=== PATIENT | female | born 1955 | race Hispanic/Latino ===

== ENCOUNTER 2020-11-20 10:15 | Outpatient (CLI) | payer MEDICARE, OTHER ==
--- NOTE | 2020-11-20 10:41 | RAD ---
Exam: 4 views of lumbar spine HISTORY: Lumbar radiculopathy. FINDINGS: Weightbearing AP, lateral neutral, lateral extension and lateral flexion views were perform ed. Four lumbar type vertebra. Lumbar spine vertebral body heights are maintained. No fracture. Mild loss of disc space height at L5-S1. Spondylolisthesis: L5-S1: 7.8 mm in the neutral position, 10 mm upon flexion, 5.4 mm upon extension. There appear to be associated bilateral pars defects. Atherosclerosis of a nonaneurysmal aorta is noted Visualized bony pelvis and sacrum are intact IMPRESSION: 1. Grade 1 anterolisthesis of L5 upon S1 with associated spondylolysis.
== END 2020-11-20 10:16 | disposition home or self-care (01) ==
LOC: BICRAD 10:15
PROVIDERS: ATTEND Neurological Surgery
DX: M54.16 Radiculopathy, lumbar region (principal); M43.06 Spondylolysis, lumbar region; M43.16 Spondylolisthesis, lumbar region
CPT/HCPCS: 72110

== ENCOUNTER 2021-03-17 08:59 | Outpatient (CLI) | payer MEDICARE, MEDICAID | END 2021-03-17 09:00 | disposition home or self-care (01) | LOC: BICCT 08:59 | PROVIDERS: ATTEND Internal Medicine | DX: Z12.2 Encounter for screening for malignant neoplasm of respiratory organs (principal); F17.210 Nicotine dependence, cigarettes, uncomplicated; R91.8 Other nonspecific abnormal finding of lung field | CPT/HCPCS: 71271 ==

== ENCOUNTER → 2021-07-15 | Outpatient (CLI) | payer MEDICARE, OTHER | LOC: SCSMRI 08:15 | PROVIDERS: ATTEND Neurological Surgery | DX: M54.16 Radiculopathy, lumbar region (principal); M43.17 Spondylolisthesis, lumbosacral region; M48.061 Spinal stenosis, lumbar region without neurogenic claudication; M48.07 Spinal stenosis, lumbosacral region | CPT/HCPCS: 72148 ==

== ENCOUNTER 2021-08-28 08:09 | Outpatient (CLI) | payer MEDICARE, OTHER ==
[2021-08-28 09:03] LABS: Hemoglobin 14.1 g/dL (12.0-15.5); Mean Corpuscular HGB CONC 32.3 g/dL (32.0-36.0); Mean Corpuscular Hemoglobin 28.2 pg (27.0-33.0); Mean Corpuscular Volume 87.2 fl (81.6-98.3); Mean Platelet Volume 11.3 fl (7.4-10.4); Platelet Count 578 10x3/uL (150-450); RBC Distribution Width 15.1 % (11.5-14.5); White Blood Cell (WBC) Count 13.2 10x3/uL (3.5-10.5)
[2021-08-28 09:28] LABS: Prothrombin Time 10.6 sec (9.5-12.1)
[2021-08-28 16:59] LABS: SARS-CoV-2 PCR by NAA Not Detected (NotDetected)
== END 2021-08-28 08:10 | disposition home or self-care (01) ==
LOC: LABBT 08:09
PROVIDERS: ATTEND Neurological Surgery
DX: Z01.812 Encounter for preprocedural laboratory examination (principal); M43.16 Spondylolisthesis, lumbar region; Z20.822 Contact with and (suspected) exposure to COVID-19
CPT/HCPCS: 85027; 85610; 85730; U0003; U0005

== ENCOUNTER 2021-09-01 05:28 | Inpatient (IN) | payer MEDICARE, OTHER ==
[2021-09-01] MEDS ORDERED: ceFAZolin 2 GM/DEX 5% 100 ML BAG ONE ×2 (06:03→13:48)
[2021-09-01] MEDS ORDERED: Thrombin 5000 UNITS/5 ML VIAL ONE (06:11)
[2021-09-01] MEDS ORDERED: Bupivacaine PF 0.5% 30 ML VIAL ONE (06:11)
[2021-09-01] MEDS ORDERED: Neomycin-Polymyxin 1 ML AMP ONE (06:11)
[2021-09-01] MEDS ORDERED: EPINEPHrine 1 MG/10 ML Abboject SYRINGE ONE (06:11)
[2021-09-01] MEDS ORDERED: EPINEPHrine 1 MG/ML AMP ONE (06:12)
[2021-09-01] MEDS ORDERED: Fentanyl 250 MCG/5 ML VIAL ONE (06:25)
[2021-09-01] MEDS ORDERED: Midazolam HCl 2 mg/2 ml Vial ONE ×2 (06:25→06:53)
[2021-09-01] MEDS ORDERED: Phenylephrine 10 MG/ML VIAL ONE (06:25)
[2021-09-01 06:27] LABS: #Basophils 0.1 thou/uL (0.0-0.2); #Eosinphils 0.2 thou/uL (0.0-0.7); #Lymphocytes 4.7 thou/uL (1.20-3.40); #Monocytes 1.1 thou/uL (0.11-0.59); #Neutrophils 8.5 thou/uL (1.40-6.50); %Basophils 0.7 % (0.0-1.0); %Eosinophils 1.6 % (0.0-10.0); %Monocytes 7.6 % (0.0-10.0); %Neutrophils 58.2 % (42.0-75.0); Hemoglobin 14.8 g/dL (12.0-16.0); Mean Corpuscular HGB CONC 32.6 g/dL (32.0-36.0); Mean Corpuscular Hemoglobin 28.2 pg (27.0-31.0); Mean Corpuscular Volume 86.5 fL (78.0-98.0); Mean Platelet Volume 8.9 fL (7.4-10.4); Platelet Count 477 thou/uL (130-400); RBC Distribution Width 13.5 % (11.5-14.5); Red Blood Cell (RBC) Count 5.24 mill/uL (4.20-5.40); White Blood Cell (WBC) Count 14.5 thou/uL (4.8-10.8)
[2021-09-01] MEDS ORDERED: Promethazine 25 MG TAB PO PRN (06:35)
[2021-09-01] MEDS ORDERED: Ondansetron PF 4 MG/2 ML Vial IVP PRN (06:35)
[2021-09-01] MEDS ORDERED: tiZANidine HCl 4 MG TAB PO PRN (06:35)
[2021-09-01] MEDS ORDERED: Milk Of Magnesia 30 ML UDCUP PO PRN (06:35)
[2021-09-01] MEDS ORDERED: HYDROcodone/Acetaminophen 10/325 mg Tablet PO PRN (06:35)
[2021-09-01] MEDS ORDERED: diphenhydrAMINE 25 MG CAP PO PRN (06:35)
[2021-09-01] MEDS ORDERED: Bisacodyl 10 MG SUPP PR PRN (06:35)
[2021-09-01] MEDS ORDERED: Mag-Al 1200 mg/1200 mg/30 ML UDCUP PO PRN (06:35)
[2021-09-01] MEDS ORDERED: Promethazine HCl 12.5 MG SUPP PR PRN (06:35)
[2021-09-01] MEDS ORDERED: Albuterol Sulfate 2.5 mg/3 ml Neb NEB PRN (06:56)
[2021-09-01] MEDS ORDERED: Lidocaine 1% PF 5 ML VIAL ONE (07:03)
[2021-09-01] MEDS ORDERED: Metoclopramide HCl 10 MG/2 ML VIAL ONE (07:03)
[2021-09-01] MEDS ORDERED: PROPOFOL 200 MG/20 ML VIAL ONE (07:03)
[2021-09-01] MEDS ORDERED: Rocuronium Bromide 10 MG/ML (10ML VIAL) ONE (07:03)
[2021-09-01] MEDS ORDERED: ePHEDrine 50 MG/ML VIAL ONE (07:03)
[2021-09-01] MEDS ORDERED: PHENYLEPHRINE-NS 100 MCG/ML 10 ML SYRINGE ONE (07:03)
[2021-09-01] MEDS ORDERED: Ondansetron PF 4 MG/2 ML Vial ONE (07:03)
[2021-09-01] MEDS ORDERED: Promethazine HCl 25 MG/ML VIAL IM PRN (12:28)
[2021-09-01] MEDS ORDERED: Ondansetron HCl/PF 4 MG/2 ML Vial IVP PRN (12:28)
[2021-09-01] MEDS ORDERED: Promethazine HCl 25 MG/ML VIAL IVPB PRN (12:28)
[2021-09-01] MEDS ORDERED: HYDROmorphone 2 MG/ML VIAL SLOW IVP PRN (12:28)
[2021-09-01] MEDS ORDERED: Fentanyl 100 MCG/2 ML VIAL ONE (12:33)
[2021-09-01] MEDS ORDERED: Promethazine HCl 25 MG/ML VIAL ONE (12:45)
[2021-09-01] MEDS ORDERED: HYDROmorphone 2 MG/ML VIAL ONE (12:48)
[2021-09-01] MEDS: ceFAZolin Sodium/D5W 2 GM in Premix Bag 1 BAG IVPB SCH ×2 (14:50→22:53)
[2021-09-01] MEDS: metFORMIN 500 MG TAB PO SCH ×2 (18:53→19:13)
[2021-09-01] MEDS: Morphine 2 MG/ML VIAL SLOW IVP PRN ×2 (19:13→22:52)
[2021-09-01] MEDS: Lisinopril 20 MG TAB PO SCH (19:57)
[2021-09-01] MEDS: Pregabalin 75 MG CAP PO SCH ×2 (19:57→22:29)
[2021-09-01] MEDS: Magnesium Oxide 400 MG TAB PO SCH (19:57)
[2021-09-01] MEDS ORDERED: Dextrose 50% Abboject 50 ML SYRINGE SLOW IVP PRN (20:20)
[2021-09-01] MEDS ORDERED: Dextrose 5% in Water 1,000 ML IV PRN (20:20)
[2021-09-01] MEDS: Montelukast Sodium 10 mg Tablet PO SCH (22:28)
[2021-09-01] MEDS: Atorvastatin Calcium 10 MG TAB PO SCH (22:29)
[2021-09-01] MEDS ORDERED: Sodium Chloride 0.9% 500 ML IV SCH (23:45)
[2021-09-02] MEDS: Acetaminophen 325 MG TAB PO PRN ×2 (00:05→23:57)
[2021-09-02] MEDS: Sodium Chloride 0.9% 1,000 ML IV SCH ×2 (00:15→13:49)
[2021-09-02] MEDS: Loratadine 10 MG TAB PO SCH ×2 (00:53→21:45)
[2021-09-02 03:14] LABS: Band 10 % (5-11); Hemoglobin 12.9 g/dL (12.0-16.0); Lymphocytes 10 % (21-51); MDiff Complete? YES; Mean Corpuscular HGB CONC 33.7 g/dL (32.0-36.0); Mean Corpuscular Hemoglobin 29.3 pg (27.0-31.0); Mean Corpuscular Volume 87.1 fL (78.0-98.0); Mean Platelet Volume 8.8 fL (7.4-10.4); Monocytes 4 % (0-10); Neutrophil 76 % (42-75); Platelet Count 434 thou/uL (130-400); Platelet Morphology Comment Appears Increased; RBC Distribution Width 13.3 % (11.5-14.5); RBC Morphology Normal; Red Blood Cell (RBC) Count 4.39 mill/uL (4.20-5.40); White Blood Cell (WBC) Count 32.9 thou/uL (4.8-10.8)
[2021-09-02 03:20] LABS: Anion Gap 15 mmol/L (10-20); BUN (Urea Nitrogen) 15 mg/dL (9.8-20.1); Calc. Creatinine Clearance 60 mL/min (70-130); Calcium 8.8 mg/dL (7.8-10.44); Carbon Dioxide 21 mmol/L (23-31); Chloride 107 mmol/L (98-107); Glucose 120 mg/dL (80-115); Potassium 4.4 mmol/L (3.5-5.1); Sodium 139 mmol/L (136-145)
[2021-09-02] MEDS: Morphine 2 MG/ML VIAL SLOW IVP PRN (04:29)
[2021-09-02] MEDS: Magnesium Oxide 400 MG TAB PO SCH (08:13)
[2021-09-02] MEDS: Pregabalin 75 MG CAP PO SCH ×2 (08:13→20:16)
[2021-09-02] MEDS: Lisinopril 20 MG TAB PO SCH (08:15)
[2021-09-02] MEDS: metFORMIN 500 MG TAB PO SCH ×2 (08:15→17:50)
[2021-09-02] MEDS: HYDROcodone/Acetaminophen 7.5/325 mg Tablet PO PRN ×2 (11:17→15:38)
[2021-09-02 18:27] LABS: Hemoglobin 11.7 g/dL (12.0-16.0); Mean Corpuscular HGB CONC 31.9 g/dL (32.0-36.0); Mean Corpuscular Hemoglobin 28.1 pg (27.0-31.0); Mean Corpuscular Volume 88.3 fL (78.0-98.0); Platelet Count 384 thou/uL (130-400); RBC Distribution Width 13.3 % (11.5-14.5); Red Blood Cell (RBC) Count 4.16 mill/uL (4.20-5.40); White Blood Cell (WBC) Count 30.7 thou/uL (4.8-10.8)
[2021-09-02 18:42] LABS: MDiff Complete? YES
[2021-09-02 18:43] LABS: Band 7 % (5-11); Lymphocytes 11 % (21-51); Monocytes 9 % (0-10); Neutrophil 72 % (42-75); Platelet Morphology Comment Appears Adequate; Polychromasia SLIGHT = 2-3 cells (100X) (0-2/hpf)
[2021-09-02 18:46] LABS: Anion Gap 13 mmol/L (10-20); BUN (Urea Nitrogen) 15 mg/dL (9.8-20.1); Calc. Creatinine Clearance 0 mL/min (70-130); Calcium 8.9 mg/dL (7.8-10.44); Carbon Dioxide 22 mmol/L (23-31); Chloride 106 mmol/L (98-107); Glucose 145 mg/dL (80-115); Potassium 4.1 mmol/L (3.5-5.1); Sodium 137 mmol/L (136-145)
[2021-09-02] MEDS: Montelukast Sodium 10 mg Tablet PO SCH (20:16)
[2021-09-02] MEDS: Atorvastatin Calcium 10 MG TAB PO SCH (20:16)
[2021-09-03] MEDS: Loratadine 10 MG TAB PO SCH ×2 (02:27→20:38)
[2021-09-03] MEDS: Pregabalin 75 MG CAP PO SCH ×2 (07:50→20:38)
[2021-09-03] MEDS: Acetaminophen/Codeine 30-300mg Tablet PO PRN ×3 (07:52→20:37)
[2021-09-03] MEDS: metFORMIN 500 MG TAB PO SCH ×2 (07:53→17:37)
[2021-09-03] MEDS: Magnesium Oxide 400 MG TAB PO SCH (07:53)
[2021-09-03] MEDS: Lisinopril 20 MG TAB PO SCH (07:53)
[2021-09-03] MEDS: Sodium Chloride 0.9% 1,000 ML IV SCH ×3 (10:46→21:55)
[2021-09-03 12:09] LABS: Hemoglobin 11.9 g/dL (12.0-16.0); Mean Corpuscular Hemoglobin 28.2 pg (27.0-31.0); Mean Corpuscular Volume 88.1 fL (78.0-98.0); Mean Platelet Volume 9.6 fL (7.4-10.4); Platelet Count 378 thou/uL (130-400); RBC Distribution Width 13.3 % (11.5-14.5); Red Blood Cell (RBC) Count 4.22 mill/uL (4.20-5.40); White Blood Cell (WBC) Count 27.3 thou/uL (4.8-10.8)
[2021-09-03 12:45] LABS: Band 15 % (5-11); Lymphocytes 8 % (21-51); MDiff Complete? YES; Monocytes 6 % (0-10); Neutrophil 71 % (42-75); RBC Morphology Normal
[2021-09-03 14:46] LABS: Bacteria/HPF None Seen HPF (None Seen); Bilirubin Negative (Negative); Blood, Urine Trace (Negative); Clarity Clear (Clear); Glucose, Urine (Dipstick) Normal (Negative); Ketone, Urine Trace mg/dL (Negative); Leukocyte Negative Leu/uL (Negative); Nitrite Negative (Negative); Protein, Urine (Dipstick) 20 mg/dL (Neg-Trace); RBC/HPF 0-3 HPF (0-3); Specific Gravity, Urine 1.024 (1.002-1.036); Squamous Epithelial 0-3 HPF (0-3); Urobilinogen Normal mg/dL (Less than 2); WBC/HPF 0-3 HPF (0-3)
[2021-09-03 14:48] LABS: Urine Culture Reflex No No
[2021-09-03] MEDS: Atorvastatin Calcium 10 MG TAB PO SCH (20:38)
[2021-09-03] MEDS: Montelukast Sodium 10 mg Tablet PO SCH (20:38)
[2021-09-04] MEDS: Pregabalin 75 MG CAP PO SCH (08:30)
[2021-09-04] MEDS: Acetaminophen/Codeine 30-300mg Tablet PO PRN (08:30)
[2021-09-04] MEDS ORDERED: FLU VACC QS2021-22(65YR UP)/PF 240 MCG/0.7 ML SYRINGE IM ONE (09:00)
[2021-09-04] MEDS: Magnesium Oxide 400 MG TAB PO SCH (09:23)
[2021-09-04] MEDS: metFORMIN 500 MG TAB PO SCH (09:24)
[2021-09-04] MEDS: Lisinopril 20 MG TAB PO SCH (09:27)
[2021-09-04] MEDS: Sodium Chloride 0.9% 1,000 ML IV SCH (11:36)
[2021-09-04 12:05] VITALS: BP 111/68; TEMP 97.4
== END 2021-09-04 15:30 | disposition home or self-care (01) | DRG 455 ==
LOC: SDC 05:28 → SURG B 06:39
PROVIDERS: ADMIT Neurological Surgery; ATTEND Neurological Surgery
PROC: 0SG30AJ Fusion of Lumbosacral Joint with Interbody Fusion Device, Posterior Approach, Anterior Column, Open Approach (ICD-10-PCS; principal; 2021-09-01)
PROC: 0SG3071 Fusion of Lumbosacral Joint with Autologous Tissue Substitute, Posterior Approach, Posterior Column, Open Approach (ICD-10-PCS; 2021-09-01)
PROC: 0SB40ZZ Excision of Lumbosacral Disc, Open Approach (ICD-10-PCS; 2021-09-01)
PROC: 0SB20ZZ Excision of Lumbar Vertebral Disc, Open Approach (ICD-10-PCS; 2021-09-01)
DX: M43.16 Spondylolisthesis, lumbar region (principal); M48.061 Spinal stenosis, lumbar region without neurogenic claudication; M43.17 Spondylolisthesis, lumbosacral region; M48.07 Spinal stenosis, lumbosacral region; G89.29 Other chronic pain; I10 Essential (primary) hypertension; E11.9 Type 2 diabetes mellitus without complications; M43.06 Spondylolysis, lumbar region; E78.5 Hyperlipidemia, unspecified; J30.2 Other seasonal allergic rhinitis; Z79.84 Long term (current) use of oral hypoglycemic drugs; Z79.891 Long term (current) use of opiate analgesic; Z79.51 Long term (current) use of inhaled steroids; Z79.899 Other long term (current) drug therapy; Z90.49 Acquired absence of other specified parts of digestive tract; Z81.8 Family history of other mental and behavioral disorders; Z82.49 Family history of ischemic heart disease and other diseases of the circulatory system; Z87.891 Personal history of nicotine dependence
CPT/HCPCS: 36415; 36416; 71045; 76000; 80048; 81001; 85025; 87040; 93970; C1713; C1768; J0171; J1170; J2250; J2270; J2370; J2405; J2550; J2704; J2765; J3010; J3370; J3490; J7030; S0020

== ENCOUNTER 2024-08-26 10:54 | Emergency (ER) | payer MEDICARE, MEDICAID ==
[2024-08-26 11:14] LABS: #Basophils 0.08 10x3/uL (0.0-0.2); %Basophils 0.5 % (0.0-1.0); %Eosinophils 0.4 % (0.0-10.0); %Lymphocytes 14.8 % (21.0-51.0); %Monocytes 6.4 % (0.0-10.0); %Neutrophils 77.4 % (42.0-75.0); Hemoglobin 13.3 g/dL (12.0-16.0); Mean Corpuscular HGB CONC 33.3 g/dL (32.0-36.0); Mean Corpuscular Hemoglobin 29.2 pg (27.0-31.0); Mean Corpuscular Volume 87.7 fL (78.0-98.0); Mean Platelet Volume 11.5 fL (7.4-10.4); Platelet Count 380 10x3/uL (130-400); RBC Distribution Width 14.4 % (11.5-14.5); Red Blood Cell (RBC) Count 4.56 mill/uL (4.20-5.40)
[2024-08-26 11:32] LABS: ALT (SGPT) 20 U/L (8-55); AST (SGOT) 27 U/L (5-34); Albumin 4.2 g/dL (3.4-4.8); Alkaline Phosphatase 107 U/L (40-110); Anion Gap 18 mmol/L (10-20); BUN (Urea Nitrogen) 23 mg/dL (9.8-20.1); Calc. Creatinine Clearance 0 mL/min (70-130); Calcium 9.6 mg/dL (7.8-10.44); Carbon Dioxide 19 mmol/L (23-31); Chloride 107 mmol/L (98-107); Estimated GFR 24; Globulin 3.2 g/dL (2.4-3.5); Glucose 154 mg/dL (80-115); INR-International Normal Ratio 1.1; Potassium 4.3 mmol/L (3.5-5.1); Protein, Total 7.4 g/dL (5.8-8.1); Prothrombin Time 13.8 sec (12.0-14.7); Sodium 140 mmol/L (136-145)
[2024-08-26 11:33] LABS: PTT 23.7 sec (22.9-36.1)
[2024-08-26 14:30] LABS: Anion Gap 14 mmol/L (10-20); BUN (Urea Nitrogen) 21 mg/dL (9.8-20.1); Calc. Creatinine Clearance 0 mL/min (70-130); Carbon Dioxide 21 mmol/L (23-31); Chloride 110 mmol/L (98-107); Estimated GFR 27; Glucose 153 mg/dL (80-115); Potassium 3.8 mmol/L (3.5-5.1); Sodium 141 mmol/L (136-145)
== END 2024-08-26 14:55 | disposition home or self-care (01) ==
LOC: ERS 10:54
DX: S09.90XA Unspecified injury of head, initial encounter (principal); M25.562 Pain in left knee; M25.552 Pain in left hip; M54.50 Low back pain, unspecified; I10 Essential (primary) hypertension; F17.210 Nicotine dependence, cigarettes, uncomplicated; E11.9 Type 2 diabetes mellitus without complications; W19.XXXA Unspecified fall, initial encounter
CPT/HCPCS: 36415; 70450; 71045; 72125; 72131; 72170; 80053; 85025; 85610; 85730; 86850; 86900; 86901

== ENCOUNTER 2024-10-13 17:48 | Observation (INO) | payer MEDICARE, MEDICAID ==
[2024-10-13 18:10] LABS: Actual Bicarbonate (HCO3v) 22.3 mEq/L (22-28); Base Excess -2.9 mEq/L (-2.0 to +3.0); Calcium, Ionized (venous) 1.14 mmol/L (1.16-1.32); Chloride (VBG) 95 mmol/L (98-106); Hematocrit-VBG 43 % (36.0-47.0); Hemoglobin (Hb) 14.6 g/dL (11.7-16.1); Potassium (VBG) 4.32 mmol/L (3.70-5.30); Sodium 132 mmol/L (133-146)
[2024-10-13 18:20] LABS: #Basophils 0.06 10x3/uL (0.0-0.2); %Basophils 0.4 % (0.0-1.0); %Eosinophils 0.7 % (0.0-10.0); %Lymphocytes 11.7 % (21.0-51.0); %Monocytes 5.8 % (0.0-10.0); %Neutrophils 80.9 % (42.0-75.0); Hemoglobin 13.7 g/dL (12.0-16.0); Mean Corpuscular HGB CONC 35.1 g/dL (32.0-36.0); Mean Corpuscular Hemoglobin 29.1 pg (27.0-31.0); Mean Corpuscular Volume 82.8 fL (78.0-98.0); Mean Platelet Volume 13.4 fL (7.4-10.4); Platelet Count 283 10x3/uL (130-400); Red Blood Cell (RBC) Count 4.71 mill/uL (4.20-5.40)
[2024-10-13 18:40] LABS: Acetaminophen Less than 10 mcg/mL (Less than 10); Alcohol Less than 10.0 mg/dL (Less than 10); Lipase 66 U/L (8-78); Phosphorus 3.3 mg/dL (2.3-4.7); Salicylate Less than 8.0 mg/dL (Less than 8.0)
[2024-10-13 18:43] LABS: Troponin I Less than 0.010 ng/mL (< 0.028)
[2024-10-13 18:44] LABS: ALT (SGPT) 30 U/L (8-55); AST (SGOT) 42 U/L (5-34); Albumin 3.7 g/dL (3.4-4.8); Alkaline Phosphatase 164 U/L (40-110); Anion Gap 18 mmol/L (10-20); BUN (Urea Nitrogen) 30 mg/dL (9.8-20.1); Bilirubin, Total 0.7 mg/dL (0.2-1.2); Calc. Creatinine Clearance 0 mL/min (70-130); Calcium 9.1 mg/dL (7.8-10.44); Carbon Dioxide 19 mmol/L (23-31); Chloride 94 mmol/L (98-107); Estimated GFR 27; Globulin 3.2 g/dL (2.4-3.5); Glucose 586 mg/dL (80-115); Potassium 4.3 mmol/L (3.5-5.1); Protein, Total 6.9 g/dL (5.8-8.1); Sodium 127 mmol/L (136-145)
[2024-10-13 18:51] LABS: Bacteria/HPF None Seen HPF (None Seen); Bilirubin Negative (Negative); Blood, Urine Negative (Negative); CAUTI Indications for Culture Dysuria,urgency,freq; Clarity Turbid (Clear); Glucose, Urine (Dipstick) Greater than 1000 mg/dL (Negative); Ketone, Urine Negative (Negative); Leukocyte 250 Leu/uL (Negative); Nitrite Negative (Negative); Protein, Urine (Dipstick) Negative (Neg-Trace); RBC/HPF 0-3 HPF (0-3); Specific Gravity, Urine 1.025 (1.002-1.036); Urobilinogen Normal mg/dL (Less than 2)
[2024-10-13 18:54] LABS: Amphetamine Not Detected (NotDetected); Barbiturates Screen Not Detected (NotDetected); Benzodiazepine Screen Not Detected (NotDetected); Cocaine Metabolite Screen Not Detected (NotDetected); Methadone Not Detected (NotDetected); Methamphetamine Not Detected (NotDetected); Opiate Screen Detected (NotDetected); Oxycodone Screen Not Detected (NotDetected); Phencyclidine (PCP) Not Detected (NotDetected); THC/Cannabinoid Screen Not Detected (NotDetected); Tricyclic Screen Detected (NotDetected)
[2024-10-13 18:59] LABS: Urine Culture Reflex No No
[2024-10-13] MEDS ORDERED: Insulin Regular, Human 100 UNIT/ML 10 ML VIAL ONE (19:46)
[2024-10-13] MEDS ORDERED: Ondansetron PF 4 MG/2 ML Vial IVP PRN (20:19)
[2024-10-13] MEDS ORDERED: Glucagon 1 MG/ML KIT IM PRN (20:20)
[2024-10-13] MEDS ORDERED: Dextrose 50% Abboject 50 ML SYRINGE SLOW IVP PRN (20:20)
[2024-10-13] MEDS ORDERED: Dextrose 5% in Water 1,000 ML IV PRN (20:20)
[2024-10-13 22:14] VITALS: BMI 33.5
[2024-10-14] MEDS: Nystatin Ointment 15 GM TUBE TOP SCH (00:44)
[2024-10-14 05:16] LABS: #Basophils 0.06 10x3/uL (0.0-0.2); %Basophils 0.5 % (0.0-1.0); %Eosinophils 1.7 % (0.0-10.0); %Lymphocytes 23.4 % (21.0-51.0); %Monocytes 6.8 % (0.0-10.0); %Neutrophils 67.1 % (42.0-75.0); Hematocrit 34.5 % (36.0-47.0); Hemoglobin 11.8 g/dL (12.0-16.0); Mean Corpuscular HGB CONC 34.2 g/dL (32.0-36.0); Mean Corpuscular Hemoglobin 29.3 pg (27.0-31.0); Mean Corpuscular Volume 85.6 fL (78.0-98.0); Mean Platelet Volume 13.4 fL (7.4-10.4); Platelet Count 265 10x3/uL (130-400); RBC Distribution Width 13.2 % (11.5-14.5); Red Blood Cell (RBC) Count 4.03 mill/uL (4.20-5.40)
[2024-10-14 05:43] LABS: Hemoglobin A1c 12.4 % (4.0-6.0)
[2024-10-14 05:45] LABS: ALT (SGPT) 22 U/L (8-55); AST (SGOT) 23 U/L (5-34); Albumin 2.9 g/dL (3.4-4.8); Alkaline Phosphatase 144 U/L (40-110); Anion Gap 16 mmol/L (10-20); BUN (Urea Nitrogen) 25 mg/dL (9.8-20.1); Bilirubin, Total 0.4 mg/dL (0.2-1.2); Calc. Creatinine Clearance 48 mL/min (70-130); Calcium 8.6 mg/dL (7.8-10.44); Carbon Dioxide 18 mmol/L (23-31); Chloride 106 mmol/L (98-107); Estimated GFR 40; Globulin 3.1 g/dL (2.4-3.5); Glucose 354 mg/dL (80-115); Potassium 3.6 mmol/L (3.5-5.1); Sodium 136 mmol/L (136-145)
[2024-10-14] MEDS: Insulin Glargine 30 UNITS/0.3 ML VIAL SC SCH (08:15)
[2024-10-14] MEDS: Acetaminophen 325 MG TAB PO PRN (09:56)
[2024-10-14 12:23] LABS: Glucose 581 mg/dL (80-115)
[2024-10-14] MEDS: Insulin Regular, Human 100 UNIT/ML 10 ML VIAL SC SCH (12:45)
[2024-10-14] MEDS: Sodium Chloride 0.9% 1,000 ML IV SCH (12:45)
[2024-10-14 14:28] VITALS: BMI 33.5
[2024-10-14] MEDS: Insulin Lispro 100 UNIT/ML 10 ML VIAL SC SCH (16:19)
[2024-10-14] MEDS: Insulin Lispro 100 UNIT/ML 10 ML VIAL SC PRN ×2 (16:20→21:26)
[2024-10-15 04:58] LABS: #Basophils 0.07 10x3/uL (0.0-0.2); %Basophils 0.5 % (0.0-1.0); %Eosinophils 1.5 % (0.0-10.0); %Lymphocytes 28.6 % (21.0-51.0); %Monocytes 6.7 % (0.0-10.0); %Neutrophils 62.1 % (42.0-75.0); Hematocrit 35.6 % (36.0-47.0); Mean Corpuscular HGB CONC 33.7 g/dL (32.0-36.0); Mean Corpuscular Hemoglobin 29.3 pg (27.0-31.0); Mean Corpuscular Volume 86.8 fL (78.0-98.0); Platelet Count 282 10x3/uL (130-400); RBC Distribution Width 13.3 % (11.5-14.5)
[2024-10-15 05:15] LABS: ALT (SGPT) 21 U/L (8-55); AST (SGOT) 19 U/L (5-34); Albumin 2.9 g/dL (3.4-4.8); Alkaline Phosphatase 124 U/L (40-110); Anion Gap 12 mmol/L (10-20); BUN (Urea Nitrogen) 16 mg/dL (9.8-20.1); Bilirubin, Total 0.5 mg/dL (0.2-1.2); Calc. Creatinine Clearance 60 mL/min (70-130); Calcium 8.6 mg/dL (7.8-10.44); Carbon Dioxide 21 mmol/L (23-31); Chloride 108 mmol/L (98-107); Estimated GFR 53; Glucose 285 mg/dL (80-115); Potassium 3.5 mmol/L (3.5-5.1); Protein, Total 5.9 g/dL (5.8-8.1); Sodium 137 mmol/L (136-145)
[2024-10-16 08:19] VITALS: BP 158/64; TEMP 98
== END 2024-10-16 09:40 | disposition home or self-care (01) ==
LOC: ERS 17:48 → OBS 20:05
PROVIDERS: ADMIT Internal Medicine; ATTEND Internal Medicine
DX: R29.6 Repeated falls (principal); G93.41 Metabolic encephalopathy; D72.829 Elevated white blood cell count, unspecified; I10 Essential (primary) hypertension; E78.5 Hyperlipidemia, unspecified; E11.65 Type 2 diabetes mellitus with hyperglycemia; N17.9 Acute kidney failure, unspecified; L30.9 Dermatitis, unspecified; Z79.84 Long term (current) use of oral hypoglycemic drugs; Z79.4 Long term (current) use of insulin; Z79.899 Other long term (current) drug therapy
CPT/HCPCS: 70450; 71045; 80053 ×3; 80306; 80307; 81001; 82010; 82550; 82805; 82947; 82962 ×4; 83036; 83605; 83690; 83735; 84100; 84484; 85025 ×3; 87040; 87086; 93005; G0378 ×5; J1815 ×2; 36415; 36416; 51701; 96360